=== PATIENT | male | born 1995 | race Caucasian/White ===

== ENCOUNTER 2017-04-28 09:17 | Emergency (ER) | payer OTHER ==
[~2017-04-28] VITALS: Ht 177.8 cm; Wt 89.8 kg
[2017-04-28 09:23] VITALS: BP_SYST 116
[2017-04-28] MEDS ORDERED: DIPH-TET-PERTUS Vaccine 0.5 ML VIAL (ADACEL) IM ONE (09:45)
[2017-04-28 10:11] VITALS: BP_SYST 115
== END 2017-04-28 10:11 | disposition home or self-care (01) ==
LOC: SED 09:17
DX: S61.432A Puncture wound without foreign body of left hand, initial encounter (principal); W46.0XXA Contact with hypodermic needle, initial encounter; Y93.89 Activity, other specified; Y92.89 Other specified places as the place of occurrence of the external cause; Y99.8 Other external cause status
CPT/HCPCS: 86704; 86706; 86803; 87340; 90715; 99283